=== PATIENT | male | born 1985 | race Caucasian/White ===

== ENCOUNTER → 2022-04-18 | Outpatient (CLI) | payer OTHER ==
[2022-04-18 09:59] LABS: CHOLESTEROL 164 mg/dL (<200); LDL CHOLESTEROL 105 mg/dL (9-159); TRIGLYCERIDES 102 mg/dl (<150)
== END | disposition home or self-care (01) ==
LOC: LAB 09:29
PROVIDERS: ATTEND Family Medicine
DX: Z02.1 Encounter for pre-employment examination (principal); E78.5 Hyperlipidemia, unspecified; R79.89 Other specified abnormal findings of blood chemistry; R53.83 Other fatigue; R74.8 Abnormal levels of other serum enzymes

== ENCOUNTER → 2022-04-19 | Outpatient (CLI) | payer SELFPAY | END | disposition home or self-care (01) | LOC: CARD 01:06 | PROVIDERS: ATTEND Internal Medicine Cardiovascular Disease | DX: Z02.1 Encounter for pre-employment examination (principal) ==